=== PATIENT | male | born 1990 | race Hispanic/Latino ===

== ENCOUNTER 2016-08-02 15:19 | Emergency (ER) | payer OTHER ==
[~2016-08-02 15:19] MED LIST: BUSP10TA2 PO; HYDR50TA76 PO; NAPR500T5 PO; RIZA5TAB18 PO; SUMA100T2 PO; SUMA50TA31 PO; ZIT250 PO
[2016-08-02 15:21] VITALS: BP 149/89; PULSE 121; RESP 20; O2SAT 97
--- NOTE | 2016-08-02 15:35 | ED.REPORT ---
HPI-Extremity Problem Lower Date of Service Aug 02, 2016 ED Provider: Nabor Fairchild MD Pt is a healthy 25 y/o male presenting to the ED c/o left lateral ankle pain secondary to injury onset today. The patient was playing basketball and inverted his left ankle and heard a pop. He has been ambulatory with a limp since the injury. He has no history of prior injuries to the ankle, leg, or foot. He c/o associated mild diffuse numbness of the left foot. Pt denies weakness of the foot, any other injury. Nursing Notes Stated Complaint: LEFT ANKLE INJURY Chief Complaint: Extremity Trauma Nursing Notes Reviewed: Yes Allergies: Coded Allergies: No Known Allergies (Verified Allergy, Unknown, 08/02/16) Scheduled Azithromycin (Zithromax) 250 Mg Tablet 250 MG PO DAILY Buspirone (Buspirone) 10 Mg Tablet 10 MG PO BID Rizatriptan ODT (Rizatriptan) 5 Mg Tablet 5 MG PO Q2H Sumatriptan Succinate (Imitrex) 50 Mg Tablet 50 MG PO Q2H Sumatriptan Succinate (Sumatriptan Succinate) 100 Mg Tablet 100 MG PO ASDIRECTED Take one tab at the onset of any visual change or headache. May repeat once 2 hours after onset if no improvement. Scheduled PRN Hydroxyzine HCl (HydrOXYzine Hcl) 50 Mg Tablet 50 MG PO TID PRN PRN For Itching Naproxen (Naproxen) 500 Mg Tablet.dr 500 MG PO BID PRN PRN For Pain General Time Seen by MD: 15:33 Chief Complaint Ankle injury left Hx Obtained From: Patient Arrived By: Walk-in Onset Occurred: 1 - 4 hours ago Symptom Duration: Since onset Caused by: Body motion Location: : Ankle left Quality: Painful Severity: Current: Moderate Severity: Maximum: Moderate Exacerbated by: Range of motion Similar Sx Previous: No Past Medical History Past Medical History Born with heart murmur Anxiety migraine Past Surgical History Plantar fasciitis Reports: Tonsillectomy Family History Noncontributory Smoking History Current Every Day Smoker Social History Alcohol Use: Denies alcohol use Drug Use: THC Other Social History: Good social support, Lives with children, Local resident Ambulatory Status Independent Review of Systems Constitutional: Denies: Chills, Fever Musculoskeletal: Reports: Extremity pain, Extremity swelling Skin: Reports Swelling, Denies Itching, Denies Rash Neurologic: Reports: Numbness, Denies: Weakness Complete sys rev & neg: except as marked. Physical Exam Initial Vital Signs Vital Signs (First) Date Time Temp Pulse Resp B/P Pulse Ox O2 Delivery O2 Flow Rate FiO2 08/02/16 15:21 36.1 121 20 149/89 97 Room Air Initial VS: Reviewed, Vital signs abnormal Head / Eyes: Atraumatic, Normocephalic, PERRL ENT: Mucous membranes moist, Conjunctiva normal, No scleral icterus Neck: Supple, Full range of motion Respiratory: Breath sounds normal, Clear to auscultation, No respiratory distress Cardiovascular: Regular rate & rhythm, Heart sounds normal, Intact distal pulses Abdomen / GI: Soft, Non-tender Upper Extremities: Vascular intact, Neuro intact, No swelling, No tenderness Skin: Warm, Dry, No cyanosis Neurologic: Alert, Oriented, Nonfocal Psychiatric: Mood/affect normal, Behavior normal, Normal thought content Lower Extremity / Pelvis / MS: No deformity, Neurologic intact, Vascular intact Ankle / Foot: No deformity, Neurologic intact, Vascular intact, No compartment syndrome, No circumferential injury Diffuse tenderness about the left lateral ankle and distribution of the tibiofibular ligament. Associated swelling without erythema, warmth, ecchymosis, signs of infection Interpretation & Diagnostics X-Ray Interpretation Study Performed: 3 view X-Ray Ordered: Ankle left Interpretation / Wet Read by: Wet read ED physician Interpretation: Normal exam, No fracture/dislocation Re-Eval/Medical Decision Med Decision/Clinical Course The patient is a generally healthy 25-year-old male who presents with left ankle injury. DDx includes fracture, ligamentous sprain, muscular strain, contusion. Patient has significant tenderness, difficulty ambulating. Therefore, we opted to obtain a radiograph. Plain films demonstrated no evidence of an acute osseous injury per my interpretation. Most likely diagnosis therefore ankle sprain. Applied aircast, provided crutches, and instructed patient to avoid weight-bearing for 3 days. After this , use as tolerated. Follow-up with PCP in 1 week. Patient remained neurovascularly intact in the affected extremity. No other associated injuries. Prior to discharge follow-up and return precautions were reviewed in detail with the patient who verbalized understanding and agreement with the plan. The patient was discharged in stable condition. Re-Evaluation/Progress : Time of Eval: 16:05 Re-Evaluation/Progress Note: Pt rechecked. Informed pt of plan for treatment. Pt understands and agrees with plan for treatment. F/U and RTER warnings given. All questions addressed. Counseled Regarding: Diagnosis, Need for follow-up, When/why to return to ED Discharge & Departure Impression: Primary Impression: Left ankle sprain Encounter type: initial encounter Involved ligament of ankle: tibiofibular ligament Qualified Code: S93.432A - Sprain of tibiofibular ligament of left ankle, initial encounter Additional Impression: Left ankle pain Chronicity: acute Qualified Code: M25.572 - Pain in left ankle and joints of left foot Disposition: Home Discharge Condition All VS Reviewed: Yes Condition: Stable Patient Instructions: Ankle Sprain (GEN) Additional Instructions: The x-ray shows no sign of fracture. Perform range of motion exercises at night and keep your foot elevated for the next few days. Take 600 mg Ibuprofen every 6 hours as needed for pain. Use ice for swelling. Return to the emergency department for any new or worsening symptoms. Follow-up with your primary care doctor if pain does not decrease, further imaging may be considered at that time. Referrals: Anthony Mueller DO (PCP) Marco Antonioibe Attestation Portions of this note were transcribed by Yung Teran. I, Dr. Fairchild personally performed the history, physical exam and medical decision-making; I reviewed and confirmed the accuracy of the information in the transcribed note. Signed by Tamika Henry, 08/02/16 - 1600 copies to: Anthony Mueller Beck O MD Aug 02, 2016 15:35 YUNG TERAN Aug 02, 2016 16:04
--- NOTE | 2016-08-02 16:09 | DRSVH ---
PROCEDURE: X-RAY LEFT ANKLE, MINIMUM THREE VIEWS ([id number]) INDICATIONS: INJURY, PAIN TECHNIQUE: 3 views of the ankle were acquired. COMPARISON: None. FINDINGS: Bones: No fractures or dislocations. Ankle mortise is normally aligned. No suspicious bony lesions . Soft tissues: No tibiotalar joint effusion. Achilles tendon appears normal. IMPRESSION: No acute fracture. No osseous lesion. If clinical suspicion and/or symptoms persist, fur ther assessment with repeat plainfilms, or advanced imaging (e.g., CT, MRI, or bone scan) may be help ful for further assessment. Dictated by: Kylah Hunt M.D. on 08/02/2016 at 16:07 Approved by: Kylah Hunt M.D. on 08/02/2016 at 16:07
== END 2016-08-02 16:19 | disposition home or self-care (01) ==
LOC: SED 15:19
DX: S93.432A Sprain of tibiofibular ligament of left ankle, initial encounter (principal); X50.1XXA Overexertion from prolonged static or awkward postures, initial encounter; Y93.67 Activity, basketball; Y92.89 Other specified places as the place of occurrence of the external cause; Y99.8 Other external cause status; F17.200 Nicotine dependence, unspecified, uncomplicated

== ENCOUNTER 2017-01-25 19:51 | Emergency (ER) | payer OTHER | END 2017-01-25 20:30 | disposition left against medical advice (07) | LOC: SED 19:51 | DX: M54.5 Low back pain (principal); Z53.21 Procedure and treatment not carried out due to patient leaving prior to being seen by health care provider ==